=== PATIENT | female | born 1955 | race American Indian/Alaskan Native ===

== ENCOUNTER 2018-08-05 13:39 | Emergency (ER) | payer MEDICARE ==
[2018-08-05 16:48] LABS: Hematocrit 34.3 % (30.3-42.9); Hemoglobin 11.9 gm/dl (10.1-14.3); Mean Corpuscular HGB Conc 35 % (30-34); Mean Corpuscular Hemoglobin 32 pg (28-32); Mean Corpuscular Volume 93 fl (79-97); Red Blood Count 3.71 M/mm3 (3.65-5.03); Red Cell Distribution Width 14.8 % (13.2-15.2)
[2018-08-05 17:10] LABS: BUN/Creatinine Ratio 19; Blood Urea Nitrogen 13 mg/dL (7-17); Calcium 9.2 mg/dL (8.4-10.2); Hemolysis Index 18
--- NOTE | 2018-08-05 17:32 | Cat Scan Report ---
FINAL REPORT EXAM: CT HEAD/BRAIN WO CON HISTORY: neuro deficits < 6hrs or sx present upon awakening TECHNIQUE: Standard unenhanced CT of the head at 5.0 millimeter axial increments. PRIORS: None. FINDINGS: The ventricular system is normal in size and configuration. There is no evidence for parenchymal volume loss. There is no evidence for mass lesion, mass effect, midline shift, acute intracranial hemorrhage, or acute ischemia/ infarction. No evidence for acute skull fracture is seen. No abnormality in the overlying scalp soft tissues is seen. Visualized paranasal sinuses are clear. Remote postsurgical changes involving the left mastoid air cells are noted. IMPRESSION: No acute intracranial process noted. Postsurgical changes in the left mastoid region are noted.
--- NOTE | 2018-08-05 17:38 | Emergency Department Report ---
ED General Adult HPI - General Chief complaint: Neuro Symptoms/Deficit Stated complaint: RT KNEE/RT HAND NUMB/ANKLE PAIN Time Seen by Provider: 08/05/18 16:52 Source: patient Mode of arrival: Ambulatory Limitations: No Limitations - History of Present Illness Initial comments: Ms. Cleveland is 62 yo female with hx of TIA, CAD presents with one month of right hand burning and tingling. Also right knee swelling and pain. Right ankle pain. Hax hx of OR/CAD/TIA tobacco abuse. gradual onset of pain. NO fever. No trauma. Has recently relocated to the local area from [place], [place] to live with son. Attempting to establish healthcare care. - Related Data Home Medications Medication Instructions Recorded Confirmed Last Taken Simvastatin [Zocor] 1 tab PO DAILY 12/27/14 12/27/14 Unknown oxyCODONE /ACETAMINOPHEN [Percocet 1 tab PO DAILY 12/27/14 12/27/14 Unknown 5/325 mg] Previous Rx's Medication Instructions Recorded Last Taken Type traMADol [Ultram 50 MG tab] 50 mg PO Q6HR PRN #10 tablet 08/05/18 Unknown Rx Allergies Allergy/AdvReac Type Severity Reaction Status Date / Time ibuprofen Allergy Hives Verified 08/14/13 18:27 ED Review of Systems ROS: Stated complaint: RT KNEE/RT HAND NUMB/ANKLE PAIN Other details as noted in HPI Comment: All other systems reviewed and negative Constitutional: denies: fever, malaise Respiratory: denies: cough Cardiovascular: denies: chest pain Gastrointestinal: denies: abdominal pain, nausea ED Past Medical Hx - Past Medical History Hx Hypertension: No Hx CVA: Yes Hx Heart Attack/AMI: Yes (2009) Additional medical history: dyslipidemia - Surgical History Past Surgical History?: Yes Additional Surgical History: LEFT EAR SURGERY, laparoscopy - Social History Smoking Status: Current Every Day Smoker - Medications Home Medications: Home Medications Medication Instructions Recorded Confirmed Last Taken Type Simvastatin [Zocor] 1 tab PO DAILY 12/27/14 12/27/14 Unknown History oxyCODONE /ACETAMINOPHEN [Percocet 1 tab PO DAILY 12/27/14 12/27/14 Unknown History 5/325 mg] traMADol [Ultram 50 MG tab] 50 mg PO Q6HR PRN #10 tablet 08/05/18 Unknown Rx ED Physical Exam - General Limitations: No Limitations General appearance: alert, in no apparent distress - Head Head exam: Present: atraumatic, normocephalic - Eye Eye exam: Present: normal appearance - ENT ENT exam: Present: mucous membranes moist - Neck Neck exam: Present: normal inspection - Respiratory Respiratory exam: Present: normal lung sounds bilaterally. Absent: respiratory distress, wheezes, rales, rhonchi - Cardiovascular Cardiovascular Exam: Present: regular rate, normal rhythm, normal heart sounds. Absent: bradycardia, tachycardia, systolic murmur, diastolic murmur, rubs, gallop - GI/Abdominal GI/Abdominal exam: Present: soft, normal bowel sounds. Absent: distended, tenderness, guarding, rebound - Extremities Exam Extremities exam: Present: other (right hand FROM, intact hand build and release manager, right knee edematous no tenderness no erythema right ankle no tenderness no edema intact pedal pulse) - Back Exam Back exam: Present: normal inspection - Neurological Exam Neurological exam: Present: alert, oriented X3 - Psychiatric Psychiatric exam: Present: normal affect, normal mood - Skin Skin exam: Present: warm, dry, intact, normal color. Absent: rash ED Course Vital Signs 08/05/18 15:30 Temperature 98.4 F Pulse Rate 68 Respiratory 18 Rate Blood Pressure 123/69 O2 Sat by Pulse 100 Oximetry ED Medical Decision Making - Lab Data Result diagrams: 08/05/18 16:24 08/05/18 16:24 - Radiology Data Radiology results: report reviewed, image reviewed no acute process - Medical Decision Making 1. right hand burning tingling DDX: carpal tunnel vs nerve compression referred to primary care clinic, given right wrist immobilizer 2. right knee pain swelling suspect OA, no indication of septic joint rx: tramadol, right ankle pain also suspect OA Critical care attestation.: If time is entered above; I have spent that time in minutes in the direct care of this critically ill patient, excluding procedure time. ED Disposition Clinical Impression: Neuropathy, Osteoarthritis, Right ankle pain, Right knee pain Disposition: - TO HOME OR SELFCARE Is pt being admited?: No Does the pt Need Aspirin: No Condition: Stable Instructions: Arthralgia (ED), Carpal Tunnel Syndrome (ED) Prescriptions: traMADol [Ultram 50 MG tab] 50 mg PO Q6HR PRN #10 tablet PRN Reason: Pain Referrals: RUI SNIDER MD [Staff Physician] - 3-5 Days [facility] [Outside] - 3-5 Days Time of Disposition: 17:44
[2018-08-05] MEDS ORDERED: PERCOCET 5/325 PO ONE (17:44)
[2018-08-05 17:49] LABS: Basophils % (Manual) 0 % (0.0-1.8); RBC Morphology Normal; Total Cells Counted 100
[2018-08-05 18:05] LABS: Platelet Count 161 K/mm3 (140-440)
[2018-08-05 18:19] VITALS: BP 124/70
== END 2018-08-05 18:19 | disposition home or self-care (01) ==
LOC: ED 13:39
DX: M25.571 Pain in right ankle and joints of right foot (principal); M25.561 Pain in right knee; I50.9 Heart failure, unspecified; E78.5 Hyperlipidemia, unspecified; F17.200 Nicotine dependence, unspecified, uncomplicated; G62.9 Polyneuropathy, unspecified; Z86.73 Personal history of transient ischemic attack (TIA), and cerebral infarction without residual deficits; Z88.8 Allergy status to other drugs, medicaments and biological substances
CPT/HCPCS: 36415; 70450; 80048; 85007; 85025